=== PATIENT | male | born 1940 | race Caucasian/White ===

== ENCOUNTER 2021-09-06 11:56 | Emergency (ER) | payer MEDICARE, BC ==
[~2021-09-06] VITALS: Ht 175.3 cm; Wt 65.8 kg
[~2021-09-06 11:56] MED LIST: MULT1CAP34 PO; TRAZ100T18 PO
[2021-09-06 12:00] VITALS: BP 163/83
--- NOTE | 2021-09-06 12:05 | NUR ---
The patient is presented to ER for "slipped/fell hit back of head-laceration. NO LOC NO thinners". Alert and oriented x4. rates head pain 2/10. Denies SOB. Respiration regular and unlabored. Will continue to monitor the patient.
[2021-09-06] MEDS ORDERED: TDAP [DIPH/PERTUSSIS/TET] 0.5 ML VIAL IM ONE ×2 (12:30→12:34)
--- NOTE | 2021-09-06 13:46 | NUR ---
Patient discharged to home in stable condition. Written and verbal after care instructions given. Patient verbalizes understanding of instruction.
== END 2021-09-06 13:48 | disposition home or self-care (01) ==
LOC: ER 11:58
DX: S01.01XA Laceration without foreign body of scalp, initial encounter (principal); Z79.899 Other long term (current) drug therapy; Z88.8 Allergy status to other drugs, medicaments and biological substances; W01.0XXA Fall on same level from slipping, tripping and stumbling without subsequent striking against object, initial encounter; Y93.89 Activity, other specified; Y92.89 Other specified places as the place of occurrence of the external cause
CPT/HCPCS: 12002; 70450; 90471; 90715; 99284; A6403

== ENCOUNTER 2021-09-14 10:36 | Emergency (ER) | payer MEDICARE, BC ==
[~2021-09-14] VITALS: Ht 180.3 cm; Wt 65.8 kg
[2021-09-14 10:43] VITALS: BP 135/69
--- NOTE | 2021-09-14 10:57 | NUR ---
AMANDEEP REMOVED BY LONA BROOKS. PT TOLERATED PROCEDURE WELL. DISCHARGE IN STABLE CONDITION.
== END 2021-09-14 10:58 | disposition home or self-care (01) ==
LOC: ER 10:38
DX: S01.01XD Laceration without foreign body of scalp, subsequent encounter (principal); Z88.8 Allergy status to other drugs, medicaments and biological substances; Z79.899 Other long term (current) drug therapy; W01.0XXD Fall on same level from slipping, tripping and stumbling without subsequent striking against object, subsequent encounter